=== PATIENT | male | born 1935 | race Caucasian/White ===

== ENCOUNTER 2017-04-20 06:15 | Emergency (ER) | payer MEDICARE ==
[~2017-04-20] VITALS: Ht 170.2 cm; Wt 79.4 kg
[2017-04-20 06:28] VITALS: BP 101/45
[2017-04-20 07:21] LABS: BASOPHILS % (AUTO) 1.3 % (0.0-2.0); EOSINOPHILS % (AUTO) 1.9 % (0.0-3.0); HEMATOCRIT 28.3 % (42.0-52.0); HEMOGLOBIN 9.7 G/DL (14.2-18.0); LYMPHOCYTES % (AUTO) 7.3 % (20.0-45.0); MEAN CORPUSCULAR VOLUME 107 FL (80-99); MONOCYTES % (AUTO) 7.6 % (1.0-10.0); NEUTROPHILS % (AUTO) 81.8 % (45.0-75.0); PLATELET COUNT 109 K/UL (150-450); RED BLOOD COUNT 2.65 M/UL (4.70-6.10); WHITE BLOOD COUNT 5.1 K/UL (4.8-10.8)
--- NOTE | 2017-04-20 07:24 | Emergency Room Report ---
History of Present Illness General Chief Complaint: Chest Pain Source: Patient, EMS Present Illness HPI This patient has a history of coronary artery disease and IN. He also has a history of angina for which he uses nitroglycerin for. He states that he developed chest pain overnight last night. He states that he did use 3 of his nitroglycerin without relief. Currently he denies that he has had chest pain. He admits to a chronic cough. He states that he has had some increase in the cough with thicker sputum production. He denies abdominal pain. He denies nausea or vomiting. He denies dysuria or hematuria. He denies fever or chills. He has no other complaints. Allergies: Coded Allergies: No Known Allergies (Unverified , 04/20/17) Patient History Past Medical History: see triage record, HTN, IN, CAD, other - Parkinson's, hydrocephalus w/ [employer]unt Social History: Denies: smoking, alcohol use, drug use Reviewed Nursing Documentation: PMH: Agreed, PSxH: Agreed Review of Systems All Other Systems: negative except mentioned in HPI Physical Exam Vital Signs Date Time Temp Pulse Resp B/P (MAP) Pulse Ox O2 Delivery O2 Flow Rate FiO2 04/20/17 05:56 98.4 76 20 98/52 100 Room Air Sp02 EP Interpretation: reviewed, normal General Appearance: no apparent distress, alert, GCS 15, non-toxic Head: normocephalic, atraumatic Eyes: bilateral eye normal inspection, bilateral eye PERRL ENT: hearing grossly normal, normal pharynx, no angioedema, normal voice Neck: full range of motion, supple/symm/no masses Respiratory: chest non-tender, lungs clear, normal breath sounds, no respiratory distress, no retraction, no accessory muscle use, speaking full sentences Cardiovascular #1: regular rate, rhythm, no edema, systolic murmur - Harsh systolic murmur 3/6 Gastrointestinal: normal bowel sounds, non tender, soft, non-distended, no guarding, no rebound Rectal: deferred Musculoskeletal: back normal, gait/station normal, normal range of motion, non- tender Neurologic: alert, oriented x3, responsive, motor strength/tone normal, sensory intact, speech normal Psychiatric: judgement/insight normal, memory normal, mood/affect normal, no suicidal/homicidal ideation Skin: normal color, no rash, warm/dry, well hydrated Medical Decision Making Diagnostic Impression: Primary Impression: Chest pain Additional Impression: CHF exacerbation ER Course This patient presented with chest pressure and pain. The patient's workup overall is reassuring. EKG is unchanged. Anemia is baseline. I was able to contact the patient's primary self pay representative Dr. Jayjay Franklin. We were able to discuss the patient's case and compare the EKG. The Q-wave in lead 3 is old for this patient. The patient also underwent a thorough cardiac workup in June of this year to include a nuclear medicine stress test. There was a small area of nonreversible ischemia on the nuclear medicine stress test. Further discussion with the patient's self pay representative, and this patient has had ongoing chest pressure and chest pain. I also discussed the elevated BNP and with further discussion with the self pay representative and the patient and his , they preferred to get IV Lasix and followup closely with the self pay representative in his office later today or early tomorrow morning. Dr. Franklin states that they can come in today. I did recommend that the patient be admitted for CHF exacerbation, however, the patient and declined admission and adamantly requested to go home. Although, I am concerned that he could worsen, also, he could contract hospital-acquired infection is admitted and further his condition is mild and he has very close followup with his primary self pay representative. Therefore, I did not force this patient to sign out AGAINST MEDICAL ADVICE. He and his are given very close return precautions and instructions to see Dr. Franklin, the primary self pay representative within 24 hours. Laboratory Tests Test 04/20/17 06:35 White Blood Count 5.1 K/UL (4.8-10.8) Red Blood Count 2.65 M/UL (4.70-6.10) L Hemoglobin 9.7 G/DL (14.2-18.0) L Hematocrit 28.3 % (42.0-52.0) L Mean Corpuscular Volume 107 FL (80-99) H Mean Corpuscular Hemoglobin 36.5 PG (27.0-31.0) H Mean Corpuscular Hemoglobin Concent 34.1 G/DL (32.0-36.0) Red Cell Distribution Width 13.0 % (11.6-14.8) Platelet Count 109 K/UL (150-450) L Mean Platelet Volume 6.2 FL (6.5-10.1) L Neutrophils (%) (Auto) 81.8 % (45.0-75.0) H Lymphocytes (%) (Auto) 7.3 % (20.0-45.0) L Monocytes (%) (Auto) 7.6 % (1.0-10.0) Eosinophils (%) (Auto) 1.9 % (0.0-3.0) Basophils (%) (Auto) 1.3 % (0.0-2.0) Prothrombin Time 9.3 SEC (9.30-11.50) Prothrombin Time INR 0.9 (0.9-1.1) PTT 26 SEC (23-33) Sodium Level 142 MMOL/L (136-145) Potassium Level 4.1 MMOL/L (3.5-5.1) Chloride Level 107 MMOL/L (98-107) Carbon Dioxide Level 27 MMOL/L (21-32) Anion Gap 8 mmol/L (5-15) Blood Urea Nitrogen 19 mg/dL (7-18) H Creatinine 1.2 MG/DL (0.55-1.30) Estimate Glomerular Filtration Rate mL/min (>60) Glucose Level 125 MG/DL (74-106) H Calcium Level 8.0 MG/DL (8.5-10.1) L Total Bilirubin 0.3 MG/DL (0.2-1.0) Aspartate Amino Transferase (AST) 21 U/L (15-37) Alanine Aminotransferase (ALT) 22 U/L (12-78) Alkaline Phosphatase 72 U/L (46-116) Total Creatine Kinase 28 U/L (26-308) Creatine Kinase MB 0.6 NG/ML (0.0-3.6) Creatine Kinase MB Relative Index 2.1 Troponin I 0.052 ng/mL (0.000-0.056) Pro-B-Type Natriuretic Peptide 961 pg/mL (0-125) H Total Protein 6.3 G/DL (6.4-8.2) L Albumin 3.2 G/DL (3.4-5.0) L Globulin 3.1 g/dL Albumin/Globulin Ratio 1.0 (1.0-2.7) EKG Diagnostic Results Rate: normal Rhythm: NSR ST Segments: no acute changes Other Impression Qwaves in lead III. No comparison EKG available. Rhythm Strip Diag. Results EP Interpretation: yes Rate: 70's Rhythm: NSR, no PVC's, no ectopy Chest X-Ray Diagnostic Results Chest X-Ray Diagnostic Results : Chest X-Ray Ordered: Yes # of Views/Limited/Complete: 1 View Indication: Chest Pain EP Interpretation: Yes Interpretation: no consolidation, no effusion, no pneumothorax, no acute cardiopulmonary disease, other - Cardiomegaly. No obvious opacity. Impression: No acute disease Electronically Signed by: Rosas Last Vital Signs Date Time Temp Pulse Resp B/P (MAP) Pulse Ox O2 Delivery O2 Flow Rate FiO2 04/20/17 06:28 98.4 73 14 101/45 100 Room Air Status: improved Disposition: HOME, SELF-CARE Condition: Improved Referrals: NON PHYSICIAN (PCP) Patient Instructions: Nonspecific Chest Pain TORSTEN DALAL D.O. Apr 20, 2017 07:23
[2017-04-20 07:27] LABS: ANION GAP 8 mmol/L (5-15); BLOOD UREA NITROGEN 19 mg/dL (7-18); CARBON DIOXIDE 27 MMOL/L (21-32); CHLORIDE 107 MMOL/L (98-107); CREATININE 1.2 MG/DL (0.55-1.30); POTASSIUM 4.1 MMOL/L (3.5-5.1); SODIUM 142 MMOL/L (136-145)
[2017-04-20 07:34] LABS: INR 0.9 (0.9-1.1)
[2017-04-20 07:43] LABS: ALANINE AMINOTRANSFERASE 22 U/L (12-78); ALBUMIN 3.2 G/DL (3.4-5.0); ALKALINE PHOSPHATASE 72 U/L (46-116); ASPARTATE AMINO TRANSFERASE 21 U/L (15-37); BILIRUBIN,TOTAL 0.3 MG/DL (0.2-1.0); CKMB 0.6 NG/ML (0.0-3.6); CREATINE KINASE 28 U/L (26-308)
[2017-04-20 08:36] VITALS: BP 98/43
[2017-04-20 10:21] VITALS: BP 99/43
[2017-04-20 10:22] VITALS: BP 99/43
--- NOTE | 2017-04-20 12:36 | Diagnostic Imaging Report ---
Indication: Chest pain Technique: One view of the chest Comparison: none Findings: Lungs and pleural spaces are clear. Heart size is upper limits normal Impression: No acute process
== END 2017-04-20 11:11 | disposition home or self-care (01) ==
LOC: EDBD 06:15 → EMR 06:33 → CANBEDREQ 09:25 → EMR 11:11
DX: R07.89 Other chest pain (principal); I50.9 Heart failure, unspecified; I25.10 Atherosclerotic heart disease of native coronary artery without angina pectoris; I25.2 Old myocardial infarction; I10 Essential (primary) hypertension; G20 Parkinson's disease; Z98.2 Presence of cerebrospinal fluid drainage device; G91.9 Hydrocephalus, unspecified
CPT/HCPCS: 36415; 71045; 80053; 82550; 82553; 83880; 84484; 85025; 85610; 85730; 96361; 96374; 99284; J1940